=== PATIENT | female | born 1955 | race Caucasian/White ===

== ENCOUNTER 2016-12-26 12:48 | Emergency (ER) | payer OTHER ==
[~2016-12-26 12:48] MED LIST: ASPIR 8181 MG PO; COLACE-DPS100 MG PO; COMPAZINE10 MG PO; DECADRON-DPS1 MG PO; DURAGESIC50 MCG TD; LEVAQUIN DPS500 MG PO; MAG-OX400 MG PO; ONDANSETRON ODT4 MG PO; OXYCODONE-ACET1 EAC1 PO; OYSTER SHELL C500 MG PO; PERCOCET 10-321 EACH PO; POTASSIUM CHLO20 ME2 PO; SPIRONOLACT50 MG PO; TYLENOL DPS325 MG PO; ZOFRAN4 MG PO; ZOVIRAX400 MG PO; [UNRECOGNIZED DRUG - OTHER] PO
--- NOTE | 2017-01-06 07:02 | ER ---
ADMIT: 12/26/2016 RM/LOC: ER [facility] MR#: [id number] [id number] [place] [address] Emergency Room Report SEX: F AGE: 61 : 1955 DATE: 12/26/2016 ADDENDUM: CHIEF COMPLAINT: Fever. HISTORY OF PRESENT ILLNESS: This is a 61-year-old female, who has had a fever intermittently for the last 2-3 days. She went to go see Dr. Kim' office today. Her temp was a 101 there, she felt very lightheaded. They checked her blood pressure on her there and her blood pressure was slightly low in the [address] Kim, so he sent over here to the ER to be evaluated. CBC showed a white count of 3.6, hemoglobin 11.9, and platelets 124. Her lactic acid is 2.1. Chemistries normal except for potassium slightly low at 2.9. Glucose 151 and GFR slightly low at 81. Her albumin low at 32, alkaline phosphatase high at 144. Otherwise, the CMP is normal. PT/INR normal. EKG showed sinus tachycardia at a rate of 101, no ST elevation or depression. Urine showed 9 white blood cells, negative leukocyte esterase, negative nitrites, 2+ protein. Cardiac enzymes are all normal. Inorganic phosphorus is low at 2. Procalcitonin is pending at this time. I did speak with Dr. Ornelas and Dr. Kim, both are okay with the patient going home. She did receive meropenem and vancomycin here in the emergency room. I sent her home on Keflex per Dr. Ornelas. CLINICAL IMPRESSION: 1. Fever. 2. Multiple myeloma. DISPOSITION: Stable at discharge. JOSUE Curran / Daniel Kumar MD / juan LOMAS: 12/26/2016 15:11:58 JOB #: [id number] CC: Daniel Kumar MD, Attending Physician UNKNOWN, Family Physician
[2017-02-17] MEDS ORDERED: TYLENOL DPS325 MG PO (09:19)
[2017-02-17] MEDS ORDERED: SYNTHROID50 MCG PO (09:19)
[2017-02-17] MEDS ORDERED: PROTONIX40 MG PO (09:20)
[2017-02-17] MEDS ORDERED: VANCOCIN125 MG PO (09:21)
[2017-02-17] MEDS ORDERED: FLAGYL-DPS250 MG PO (09:21)
[2017-02-17] MEDS ORDERED: CARAFATE DPS1 GM PO (09:21)
[2017-02-17] MEDS ORDERED: MAALOX DPS30 ML PO (09:22)
== END 2016-12-26 16:45 | disposition home or self-care (01) ==
LOC: ER 12:48
DX: R50.9 Fever, unspecified (principal); C90.00 Multiple myeloma not having achieved remission; Z88.0 Allergy status to penicillin

== ENCOUNTER 2017-01-04 07:49 | Day surgery (SDC) | payer OTHER ==
[~2017-01-04] VITALS: Ht 165.1 cm; Wt 64.6 kg
[2017-02-17] MEDS ORDERED: TYLENOL DPS325 MG PO (09:19)
[2017-02-17] MEDS ORDERED: SYNTHROID50 MCG PO (09:19)
[2017-02-17] MEDS ORDERED: PROTONIX40 MG PO (09:20)
[2017-02-17] MEDS ORDERED: CARAFATE DPS1 GM PO (09:21)
[2017-02-17] MEDS ORDERED: VANCOCIN125 MG PO (09:21)
[2017-02-17] MEDS ORDERED: FLAGYL-DPS250 MG PO (09:21)
[2017-02-17] MEDS ORDERED: MAALOX DPS30 ML PO (09:22)
== END 2017-01-04 10:55 | disposition home or self-care (01) ==
LOC: RAD.S 07:49
PROC: 07DR3ZX Extraction of Iliac Bone Marrow, Percutaneous Approach, Diagnostic (ICD-10-PCS; principal; 2017-01-04)
DX: C90.00 Multiple myeloma not having achieved remission (principal); Z88.0 Allergy status to penicillin